=== PATIENT | male | born 1990 | race Two or more races ===

== ENCOUNTER 2023-05-03 13:38 | Emergency (ER) | payer OTHER ==
[~2023-05-03] VITALS: Ht 172.7 cm; Wt 120.2 kg
[2023-05-03] MEDS ORDERED: METHYLPHENIDATE10 M1 PO (13:59)
[2023-05-03] MEDS ORDERED: COTEMPLA XR-O17.3 MG (14:00)
[2023-05-03] MEDS ORDERED: DESCOVY 200-251 EACH PO (15:15)
[2023-05-03 15:20] LABS: HEMATOCRIT 48.4 % (39.0-48.0); HEMOGLOBIN 15.8 g/dL (13-16.00); MEAN CELL VOLUME 78.9 fL (80.0-100.00); MEAN CORPUSCULAR HEMOGLOBIN 25.8 pg (27.00-32.0); MEAN CORPUSCULAR HGB CONC 32.7 g/dl (32.0-36.0); PLATELET COUNT 247 K/uL (150-450); RED BLOOD COUNT 6.14 M/uL (4.00-6.00); RED CELL DISTRIBUTION WIDTH 15.2 % (11.5-14.5)
[2023-05-03 15:49] LABS: PROTHROMBIN TIME 10.5 SECONDS (9.0-11.5)
[2023-05-03 15:53] LABS: PARTIAL THROMBOPLASTIN TIME 41.7 SECONDS (22.0-34.0)
[2023-05-03 16:01] LABS: BILIRUBIN TOTAL 0.45 mg/dL (0.3-1.2); CALCIUM 9.3 mg/dL (8.5-10.1); CREATININE SERUM 0.85 mg/dL (0.70-1.30); GFR 103.81; GLOBULINA 3.9 G/DL (2.4-3.5); POTASSIUM 4.11 mEq/L (3.5-5.1); TOTAL PROTEIN 7.9 gm/dL (6.4-8.2)
== END 2023-05-03 18:39 | disposition home or self-care (01) ==
LOC: ER 13:38
PROVIDERS: General Practice
DX: R42 Dizziness and giddiness (principal); R00.2 Palpitations